=== PATIENT | female | born 1990 | race Caucasian/White ===

== ENCOUNTER 2020-08-03 22:27 | Emergency (ER) | payer MEDICAID ==
[~2020-08-03] VITALS: Ht 157.5 cm; Wt 129.3 kg
[2020-08-03 22:41] VITALS: BP 131/73
--- NOTE | 2020-08-03 23:50 | NUR ---
TO BED 4 , ACCOMPANIED BY MOM, WITH C/O ABDOMINAL PAIN. POINTS TO EPIGASTRIC AREA WHEN ASKED WHERE PAIN IS. AMBULATES TO BR FOR UA.
[2020-08-04] MEDS ORDERED: MORPHINE SULFATE 2 MG/ML SYR IVP ONE (00:15)
[2020-08-04] MEDS ORDERED: ONDANSETRON 4 MG/2 ML VIAL IVP ONE (00:15)
[2020-08-04] MEDS ORDERED: PANTOPRAZOLE 40 MG INJ VIAL IVP ONE (00:15)
[2020-08-04] MEDS ORDERED: NACL 0.9% 1,000 ML IV ONE (00:15)
--- NOTE | 2020-08-04 00:30 | NUR ---
POOR VENOUS ACCESS
[2020-08-04 01:20] LABS: BASOPHILS % (AUTO) 0.4 % (0.0-2.0); EOSINOPHILS # (AUTO) 0.4 K/uL (0-0.4); EOSINOPHILS % (AUTO) 3.2 % (0.0-4.0); HEMATOCRIT 35.2 % (36-48); HEMOGLOBIN 11.4 g/dL (12.0-16.0); LYMPHOCYTES # (AUTO) 3.8 K/uL (2.5-16.5); LYMPHOCYTES % (AUTO) 34.9 % (20.5-51.1); MEAN CORPUSCULAR HEMOGLOBIN 29 pg (27-31); MEAN CORPUSCULAR HGB CONC 32 g/dL (33-37); MONOCYTES # (AUTO) 0.9 K/uL (0.8-1.0); MONOCYTES % (AUTO) 8.3 % (1.7-9.3); NEUTROPHILS # (AUTO) 5.8 K/uL (1.8-7.7); NEUTROPHILS % (AUTO) 53.2 % (42.2-75.2); PLATELET COUNT (AUTO) 286 K/uL (140-450); RED BLOOD CELL COUNT(AUTO) 3.95 MIL/uL (4.20-5.40); RED CELL DISTRIBUTION WIDTH 14.6 % (11.6-13.7)
[2020-08-04 01:22] LABS: ALBUMIN 3.1 g/dL (3.4-5.0); ANION GAP 7.4 (8-16); CARBON DIOXIDE 33.2 mmol/L (21-32); CREATININE 0.5 mg/dL (0.6-1.3); POTASSIUM 3.6 mmol/L (3.5-5.1); TOTAL BILIRUBIN 0.2 mg/dL (0.0-1.0)
[2020-08-04] MEDS ORDERED: MORPHINE SULFATE 4 MG/ML SYR IVP ONE (01:40)
--- NOTE | 2020-08-04 01:45 | NUR ---
MOANING LOUDLY WITH INCREASED C/O PAIN. ADDITIONAL PAIN MED ORDERED
--- NOTE | 2020-08-04 01:50 | NUR ---
MOANING LOUDLY. ADDITIONAL PAIN MED ORDERED
--- NOTE | 2020-08-04 01:53 | NUR ---
EKG IN PROGRESS
--- NOTE | 2020-08-04 02:37 | NUR ---
TO CT VIA [facility]
--- NOTE | 2020-08-04 03:00 | NUR ---
RETURNED FROM CT
[2020-08-04 03:20] LABS: APPEARANCE,URINE SL CLOUDY (CLEAR); BILIRUBIN,URINE NEGATIVE (NEGATIVE); BLOOD, URINE NEGATIVE (NEGATIVE); COLOR,URINE YELLOW (YELLOW); LEUKOCYTE ESTERASE ,URINE NEGATIVE (NEGATIVE); NITRITE, URINE NEGATIVE (NEGATIVE); PH,URINE 5.5 (5.0-9.0); UGLUCOSE NEGATIVE (NEGATIVE)
[2020-08-04 04:48] VITALS: BP 131/73
--- NOTE | 2020-08-04 04:48 | NUR ---
Patient discharged with v/s stable. Written and verbal after care instructions given and explained. Patient alert, oriented and verbalized understanding of instructions. Ambulatory with steady gait. All questions addressed prior to discharge. ID band removed. Patient advised to follow up with PMD. Rx of PROTONIX given. Patient educated on indication of medication including possible reaction and side effects. Opportunity to ask questions provided and answered.
== END 2020-08-04 04:40 | disposition home or self-care (01) ==
LOC: MED 22:27
DX: R10.13 Epigastric pain (principal); Q87.11 Prader-Willi syndrome
CPT/HCPCS: 36415; 74176; 80053; 81003; 81025; 83690; 84484; 84703; 85025; 93005; 96361; 96374; 96375; 96376; 99284; C9113; J2270; J2405; J7030

== ENCOUNTER 2020-08-25 20:29 | Inpatient (IN) | payer MEDICAID, SELFPAY ==
[~2020-08-25] VITALS: Ht 149.9 cm; Wt 131.5 kg
[2020-08-25 20:53] VITALS: BP 140/85
--- NOTE | 2020-08-25 21:16 | NUR ---
ERMD EVALUATING PATIENT IN TENT.
--- NOTE | 2020-08-25 21:31 | NUR ---
Pt ambulated to ER bed 9 w/ steady gait. Sister at bedside w/ pt at this time.
--- NOTE | 2020-08-25 21:31 | NUR ---
Lab at bedside.
--- NOTE | 2020-08-25 21:31 | NUR ---
RT at bedside for ABG.
[2020-08-25 21:45] LABS: BASOPHILS % (AUTO) 0.4 % (0.0-2.0); EOSINOPHILS % (AUTO) 0.6 % (0.0-4.0); HEMATOCRIT 42.5 % (36-48); HEMOGLOBIN 13.8 g/dL (12.0-16.0); LYMPHOCYTES # (AUTO) 2.4 K/uL (2.5-16.5); LYMPHOCYTES % (AUTO) 36.9 % (20.5-51.1); MEAN CORPUSCULAR HEMOGLOBIN 29 pg (27-31); MEAN CORPUSCULAR HGB CONC 33 g/dL (33-37); MEAN CORPUSCULAR VOLUME 88.2 fL (80-94); MONOCYTES # (AUTO) 0.8 K/uL (0.8-1.0); MONOCYTES % (AUTO) 12.5 % (1.7-9.3); NEUTROPHILS # (AUTO) 3.2 K/uL (1.8-7.7); NEUTROPHILS % (AUTO) 49.6 % (42.2-75.2); PLATELET COUNT (AUTO) 213 K/uL (140-450); RED BLOOD CELL COUNT(AUTO) 4.82 MIL/uL (4.20-5.40); RED CELL DISTRIBUTION WIDTH 15.1 % (11.6-13.7); WHITE BLOOD COUNT (AUTO) 6.4 K/uL (4.8-10.8)
--- NOTE | 2020-08-25 21:45 | NUR ---
29 YO F BIB SELF, CAREGIVER AT BEDSIDE, WITH C/C OF COUGH AND CONGESTION X4 DAYS. CAREGIVER STATED O2 SAT AT 86% AND HAD A CHANGE IN LOC. PT IS CURRENTLY AT NORMAL LOC PER CAREGIVER. 02 SAT 95 RA AT THIS TIME. PT DENIES PAIN/ DISCOMFORT AT THIS TIME. -FEVER AND CHILLS. CAREGIVER STATED PT WAS TAKING TYLENOL AND ROBITUSSIN X4DAYS, NO IMPROVEMENT. 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
--- NOTE | 2020-08-25 21:48 | NUR ---
EKG PERFORMED AT BEDSIDE. EKG READS SINUS RHYTHM @ 83
--- NOTE | 2020-08-25 22:02 | NUR ---
SWABS COLLECTED AND WALKED TO LAB. PT GIVEN URINE CUP AND INSTRUCTED TO GIVE URINE SOON SHE CAN. RN AT BEDSIDE STARTING IV.
[2020-08-25 22:08] LABS: ALBUMIN 3.4 g/dL (3.4-5.0); CARBON DIOXIDE 29.1 mmol/L (21-32); CREATININE 0.9 mg/dL (0.6-1.3); POTASSIUM 4.1 mmol/L (3.5-5.1); TOTAL BILIRUBIN 0.2 mg/dL (0.0-1.0)
[2020-08-25 22:11] LABS: LACTATE DEHYDROGENASE 327 U/L (81-234)
[2020-08-25 22:12] LABS: C-REACTIVE PROTEIN QUANT 10.4 mg/dL (0.0-0.9)
[2020-08-25] MEDS ORDERED: NACL 0.9% 500 ML IV ONE (22:30)
[2020-08-25 22:32] LABS: PROTHROMBIN TIME 9.8 secs (10.8-13.4)
--- NOTE | 2020-08-25 22:37 | NUR ---
PT AMBULATING TO RR TO GIVE URINE WITH CAREGIVER'S HELP.
--- NOTE | 2020-08-25 22:54 | NUR ---
URINE COLLECTED AND TAKEN TO LAB.
[2020-08-25] MEDS ORDERED: DEXAMETHASONE 4 MG/ML VIAL IVP ONE (23:05)
[2020-08-25 23:28] LABS: APPEARANCE,URINE HAZY (CLEAR); BILIRUBIN,URINE NEGATIVE (NEGATIVE); BLOOD, URINE NEGATIVE (NEGATIVE); COLOR,URINE YELLOW (YELLOW); LEUKOCYTE ESTERASE ,URINE NEGATIVE (NEGATIVE); NITRITE, URINE NEGATIVE (NEGATIVE); UGLUCOSE NEGATIVE (NEGATIVE)
[2020-08-25 23:45] LABS: RBC,URINE 0-5 /HPF (0-5); WBC,URINE 0-5 /HPF (0-5)
--- NOTE | 2020-08-25 23:48 | NUR ---
PT IS IN STABLE CONDITION. PT IS AWAKE AND HAS CAREGIVER AT BEDSIDE. ALL PT'S NEEDS MET AT THIS TIME. SIDE RAILS X2, BED LOCKED IN LOWEST POSITION.
--- NOTE | 2020-08-26 01:25 | NUR ---
PATIENT RESTING QUIETLY IN BED. SISTER AT BEDSIDE. VSS. WILL CONTINUE TO MONITOR.
--- NOTE | 2020-08-26 03:08 | NUR ---
pt is sleeping with caregiver at bedside. equal rise and fall of chest wall. bed locked in lowest position, side rails x2.
--- NOTE | 2020-08-26 04:05 | NUR ---
pt is sleeping with caregiver at bedside. equal rise and fall of chest wall. bed locked in lowest position, side rails x2
--- NOTE | 2020-08-26 04:36 | NUR ---
notified dr. carroll to move 0900 antibiotic to now and add extra fluid bolus per septic protocol. waiting for response.
--- NOTE | 2020-08-26 04:41 | NUR ---
dr. carroll stated to give 0900 dose of abx now. orders carried out.
[2020-08-26] MEDS ORDERED: cefTRIAXone 1,000 MG VIAL ONE (04:42)
[2020-08-26] MEDS ORDERED: NACL 0.9% 2,000 ML IV ONE (04:55)
[2020-08-26] MEDS ORDERED: AZITHROMYCIN 250 MG TAB ONE (05:52)
--- NOTE | 2020-08-26 06:50 | NUR ---
pt is sleeping with caregiver at bedside. equal rise and fall of chest wall. bed locked in lowest position, side rails x2
--- NOTE | 2020-08-26 07:21 | NUR ---
REPORT RECEIVED FROM BETSY KAPOOR
--- NOTE | 2020-08-26 07:21 | NUR ---
REPORT GIVEN TO BETSY COFFMAN. TRANSFER OF CARE AT THIS TIME.
--- NOTE | 2020-08-26 07:28 | NUR ---
PT ASSISTED TO THE RESTROOM VIA WHEELCHAIR BY CAREGIVER WITHOUT INCIDENT.
[2020-08-26] MEDS ORDERED: AZITHROMYCIN 250 MG TAB PO SCH (09:00)
--- NOTE | 2020-08-26 09:06 | NUR ---
BREAKFAST TRAY PROVIDED TO PT
--- NOTE | 2020-08-26 09:36 | NUR ---
PATIENT HAS BEEN SCREENED AND CATEGORIZED MODERATE NUTRITION RISK. PATIENT WILL BE SEEN WITHIN 3-5 DAYS OF ADMISSION. 08/28/20-08/30/[address]
--- NOTE | 2020-08-26 10:00 | NUR ---
PT ATE 100% OF BREAKFAST.
[2020-08-26] MEDS ORDERED: MAG SULF 2000 MG/WATER PREMIX 50 ML IV PRN (10:10)
[2020-08-26] MEDS ORDERED: ZOLPIDEM 5 MG TAB PO PRN (10:10)
[2020-08-26] MEDS ORDERED: MORPHINE SULFATE 2 MG/ML SYR IVP PRN (10:10)
[2020-08-26] MEDS ORDERED: DOCUSATE SODIUM 100 MG GELCAP PO PRN (10:10)
[2020-08-26] MEDS ORDERED: ALBUTEROL HFA MDI 90 MCG/ACTUATION 8 GM INH PRN (10:10)
[2020-08-26] MEDS ORDERED: HYDROcodone/APAP 5/325 MG 1 TAB TAB PO PRN (10:10)
[2020-08-26] MEDS ORDERED: POTASSIUM CHLORIDE 10 MEQ TABER PO PRN (10:10)
[2020-08-26] MEDS ORDERED: ACETAMINOPHEN 325 MG TAB PO PRN (10:10)
[2020-08-26] MEDS ORDERED: LORazepam 2 MG/ML VIAL IM/IVP PRN (10:10)
[2020-08-26] MEDS: NACL 0.9% 1,000 ML IV SCH ×2 (10:10→15:15)
[2020-08-26] MEDS ORDERED: ONDANSETRON 4 MG/2 ML VIAL IM/IVP PRN (10:10)
--- NOTE | 2020-08-26 12:25 | NUR ---
PT ASLEEP IN BED WITH CAREGIVER AT BEDSIDE. EQUAL CHEST RISE AND FALL. BED LOCKED AND IN LOWEST POSITION. SIDE RAILS X2. ORTHOPAEDIC SURGEON IN PLACE.
[2020-08-26 13:10] LABS: BASOPHILS % (AUTO) 0.3 % (0.0-2.0); HEMATOCRIT 38.5 % (36-48); HEMOGLOBIN 12.5 g/dL (12.0-16.0); LYMPHOCYTES % (AUTO) 29.4 % (20.5-51.1); MEAN CORPUSCULAR HEMOGLOBIN 29 pg (27-31); MEAN CORPUSCULAR HGB CONC 32 g/dL (33-37); MEAN CORPUSCULAR VOLUME 88.1 fL (80-94); MONOCYTES # (AUTO) 0.4 K/uL (0.8-1.0); MONOCYTES % (AUTO) 11.2 % (1.7-9.3); NEUTROPHILS # (AUTO) 1.9 K/uL (1.8-7.7); NEUTROPHILS % (AUTO) 59.1 % (42.2-75.2); PLATELET COUNT (AUTO) 199 K/uL (140-450); RED BLOOD CELL COUNT(AUTO) 4.37 MIL/uL (4.20-5.40); RED CELL DISTRIBUTION WIDTH 14.9 % (11.6-13.7); WHITE BLOOD COUNT (AUTO) 3.3 K/uL (4.8-10.8)
[2020-08-26 13:40] LABS: ALBUMIN 2.6 g/dL (3.4-5.0); ANION GAP 13.8 (8-16); CREATININE 0.6 mg/dL (0.6-1.3); MAGNESIUM 1.8 mg/dL (1.8-2.4); PHOSPHORUS 2.5 mg/dL (2.5-4.9); POTASSIUM 3.8 mmol/L (3.5-5.1); THYROID STIMULATING HORMONE 0.42 uIU/mL (0.34-3.74); TOTAL BILIRUBIN 0.2 mg/dL (0.0-1.0)
--- NOTE | 2020-08-26 13:55 | NUR ---
LUNCH TRAY PROVIDED TO PT
--- NOTE | 2020-08-26 14:50 | NUR ---
PT RESTING IN BED. EQUAL CHEST RISE AND FALL. BED LOCKED IN LOWEST POSITION, SIDE RAILS X2, CALL LIGHT IN REACH
--- NOTE | 2020-08-26 17:56 | NUR ---
PT SITTING IN HIGH FOWLERS POSITION WATCHING TV. SISTER IN ROOM STATES SHE IS OLDER SISTER AND DURABLE MEDICAL EQUIPMENT TECHNICIAN OF PT. DAM TENDER IN PLACE WITH VSS. EQUAL CHEST RISE AND FALL. ALL PT NEEDS MET. BED LOCKED IN LOWEST POSITION, SIDE RAILS X2, CALL LIGHT IN REACH
--- NOTE | 2020-08-26 19:05 | NUR ---
SPOKE WITH ASHLY, SISTER/CAREGIVER TO PT. CAREGIVER REQUESTED INFORMATION ABOUT CHEST XRAY RESULTS, AND WHETHER IF PT WILL BE OBSERVED IN ER OR ANOTHER FLOOR. PT REPOSITIONED ONTO BED, RIB MATCHER AND FITTER IN PLACE. VSS. EQUAL CHEST RISE AND FALL ALL PT NEEDS MET. BED LOCKED IN LOWEST POSITION, SIDE RAILS X2, CALL LIGHT IN REACH
--- NOTE | 2020-08-26 19:18 | NUR ---
REPORT AND TRANSFER OF CARE GIVEN TO BETSY LAW
--- NOTE | 2020-08-26 19:22 | NUR ---
RECIVED REPORT FROM MEGHNA MEYER, CONTINUATION OF CARE.
[2020-08-26] MEDS ORDERED: ENOXAPARIN 30 MG/0.3 ML SYR SUBQ SCH (21:00)
[2020-08-26] MEDS ORDERED: ENOXAPARIN 100 MG/ML SYR SUBQ SCH (21:00)
--- NOTE | 2020-08-26 22:35 | NUR ---
Patient will be admitted to care of DR. TYLER. Admited to TELE. Will go to room 119A. Belongings list completed. Report to RIGOBERTO MEYER.
--- NOTE | 2020-08-26 23:40 | NUR ---
Patient arrived via [place] from ER,ambulated from bed to bed, without issue. No s/s of dyspnea, distress, or discomfort noted. VS stable, O2 95% 2L NC. Patient cooperative, apprehensive, has some cognitive delay, but responds and communicates in Mauritanian. Family phone numbers with nursing staff, sisters, Mauritanian speaking involved with care, Mom is Israeli speaking only.
[2020-08-27] VITALS: BP 137/64
--- NOTE | 2020-08-27 | NUR ---
Patient's Ambulatory, A/O x 3, delayed responses, Cardiac rhythm NSR, HR 80's, Sats high 90's 2L NC, LS Clear, GI Bowel Sounds All Quad Active, Pedal, radial pulses +2, Continent, Denies pain.
[2020-08-27 04:00] VITALS: BP 113/51
--- NOTE | 2020-08-27 06:40 | NUR ---
Patient Bradycardia in 40's. Asyymptomatic. Notified Dr. Arnold received orders for EKG, Consult, all orders carried out, Patient asymptomatic. Resting bed, comfortably sleeping, no s/s of distress, discomfort. Awaiting EKG Stat.
[2020-08-27 06:43] VITALS: BP 111/63
--- NOTE | 2020-08-27 08:30 | NUR ---
NURSE REPORT Obtained report from night nurse Ely, who didn't do admission of patient, even even patient came to unit about MN. This nurse assume care of patient until 1930. VSS. Afeb. No c/o pain or discomfort. COVID-19 +. Patient coming out of room and not able to direct her back to room. This nurse called her sister Yin, and able to direct her back into her room.
[2020-08-27] MEDS: VITAMIN D 400 IU TAB PO SCH (08:39)
[2020-08-27] MEDS: ASCORBIC ACID 500 MG TAB PO SCH (08:45)
[2020-08-27 09:34] LABS: BASOPHILS % (AUTO) 0.3 % (0.0-2.0); HEMATOCRIT 35.2 % (36-48); HEMOGLOBIN 11.6 g/dL (12.0-16.0); LYMPHOCYTES # (AUTO) 1.9 K/uL (2.5-16.5); MEAN CORPUSCULAR HEMOGLOBIN 29 pg (27-31); MEAN CORPUSCULAR HGB CONC 33 g/dL (33-37); MEAN CORPUSCULAR VOLUME 87.7 fL (80-94); MONOCYTES # (AUTO) 0.8 K/uL (0.8-1.0); MONOCYTES % (AUTO) 12.4 % (1.7-9.3); NEUTROPHILS # (AUTO) 3.7 K/uL (1.8-7.7); NEUTROPHILS % (AUTO) 58.3 % (42.2-75.2); PLATELET COUNT (AUTO) 222 K/uL (140-450); RED BLOOD CELL COUNT(AUTO) 4.02 MIL/uL (4.20-5.40); RED CELL DISTRIBUTION WIDTH 14.8 % (11.6-13.7); WHITE BLOOD COUNT (AUTO) 6.4 K/uL (4.8-10.8)
[2020-08-27 09:49] LABS: ALBUMIN 2.6 g/dL (3.4-5.0); ANION GAP 12.9 (8-16); CHOL/HDL RATIO 4.3 (1-4.5); CREATININE 0.4 mg/dL (0.6-1.3); MAGNESIUM 2.2 mg/dL (1.8-2.4); PHOSPHORUS 3.3 mg/dL (2.5-4.9); POTASSIUM 3.9 mmol/L (3.5-5.1); TOTAL BILIRUBIN 0.2 mg/dL (0.0-1.0)
--- NOTE | 2020-08-27 11:45 | NUR ---
SOCIAL WORK NOTE: Patient's Orientation Unable To Assess Information Provided By FREEMAN ALFREDO - MOTHER Comments SW WAS UNABLE TO MEET PATIENT AT BEDSIDE TO COMPLETE ASSESSMENT. SW COMPLETED ASSESSMENT WITH PATIENT'S MOTHER. Newspaper Correspondent, Realtionship and Phone Number FREEMAN OSBORNE [phone] Healthcare Power of Optical Engineer No Does Patient Have a POLST No Identifying Problems No Social Work Triggers Is A Social Work Consult Needed No Mandate Report Filed No Explanation Of Identifying Problems PATIENT IS A 29-YEAR-OLD FEMALE ADMITTED FOR COVID/HYPOXIA. PATIENT HAS PMHX OF PRADER WILLI SYNDROME AND SUPER MORBID OBESITY. Admitted From Home Pre-Admission Level Of Functioning Status Independent/Ambulatory Prior Resources/Services Used In Last 12 Months No Prior Resources Used Prior DME No Prior DME Used Dialysis Comments N/A Living Situation Lives With Family House Patient Had Caregiver No Home Support No Caregiver Issues Financial Issues No Known Financial Issue Referral To The Financial Counselor Needed No Factors/Needs No D/C Needs Identified Pt/Rep Participated In Discharge Plan Yes Patient/Family Agress With Discharge Plan Yes Discharge Plan Comments TENTATIVE DISCHARGE PLAN IS FOR PATIENT TO RETURN HOME. DC Plan Status Initiated
[2020-08-27 12:00] VITALS: BP 125/65
[2020-08-27 17:49] VITALS: BP 146/78
--- NOTE | 2020-08-27 19:30 | NUR ---
ENDORSEMENT AND NURSE REPORT Report given to night nurse Amanda. This nurse able to do admission for patient with the help of her cellphone and spoke with patient sister Yin Killian and mother Zakia aMlave . 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 MRSA swab was obtained this am and taken to lab.
[2020-08-27 20:00] VITALS: BP 107/56
[2020-08-28] VITALS (7 sets, daily range): BP systolic 106–143; BP diastolic 60–74
[2020-08-28] MEDS: NACL 0.9% 1,000 ML IV SCH ×2 (02:06→12:10)
--- NOTE | 2020-08-28 02:28 | NUR ---
REFUSED IV INSERTION WENT TO PT ROOM TO GIVE IVF BUT PT DOESN'T HAVE IV PERIPHERAL LINE, SPOKE WITH PT ENCOURAGE & EXPLAINED TO HER THE BENEFIT OF HAVING IV PERIPHERAL BUT STILL REFUSING & PULLING HER ARMS BACK & CRYING. WILL CALL FAMILY IN THE MORNING TO TRY TO TALK TO THE PT FOR IV INSERTION.
[2020-08-28 07:47] LABS: BASOPHILS % (AUTO) 0.3 % (0.0-2.0); EOSINOPHILS % (AUTO) 0.1 % (0.0-4.0); HEMATOCRIT 36.5 % (36-48); HEMOGLOBIN 11.9 g/dL (12.0-16.0); LYMPHOCYTES # (AUTO) 1.8 K/uL (2.5-16.5); LYMPHOCYTES % (AUTO) 33.7 % (20.5-51.1); MEAN CORPUSCULAR HEMOGLOBIN 28 pg (27-31); MEAN CORPUSCULAR HGB CONC 33 g/dL (33-37); MEAN CORPUSCULAR VOLUME 87.4 fL (80-94); MONOCYTES # (AUTO) 0.9 K/uL (0.8-1.0); MONOCYTES % (AUTO) 17.2 % (1.7-9.3); NEUTROPHILS # (AUTO) 2.6 K/uL (1.8-7.7); NEUTROPHILS % (AUTO) 48.7 % (42.2-75.2); PLATELET COUNT (AUTO) 268 K/uL (140-450); RED BLOOD CELL COUNT(AUTO) 4.18 MIL/uL (4.20-5.40); RED CELL DISTRIBUTION WIDTH 14.6 % (11.6-13.7); WHITE BLOOD COUNT (AUTO) 5.4 K/uL (4.8-10.8)
[2020-08-28 07:59] LABS: ALBUMIN 2.7 g/dL (3.4-5.0); ANION GAP 14.8 (8-16); CARBON DIOXIDE 27.6 mmol/L (21-32); CREATININE 0.5 mg/dL (0.6-1.3); MAGNESIUM 1.6 mg/dL (1.8-2.4); PHOSPHORUS 4.1 mg/dL (2.5-4.9); POTASSIUM 4.4 mmol/L (3.5-5.1); TOTAL BILIRUBIN 0.2 mg/dL (0.0-1.0)
--- NOTE | 2020-08-28 08:00 | NUR ---
NURSE REPORT Received report from night nurse Amanda, and this nurse assumed care of patient until 1930. VSS. Afeb. No c/o pain or discomfort.
[2020-08-28] MEDS: ASCORBIC ACID 500 MG TAB PO SCH (11:07)
[2020-08-28] MEDS: VITAMIN D 400 IU TAB PO SCH (11:07)
[2020-08-28] MEDS ORDERED: VITD400 PO (12:25)
[2020-08-28] MEDS ORDERED: VITC500 PO (12:25)
[2020-08-28] MEDS ORDERED: DEXA6TAB1 PO (12:25)
[2020-08-28] MEDS ORDERED: ZINC50TA58 PO (12:26)
[2020-08-28] MEDS ORDERED: APIX2.5 PO (14:50)
[2020-08-28 15:07] LABS: T4 (THYROXINE) 10.3 ug/dL (4.5-12.0)
--- NOTE | 2020-08-28 18:00 | NUR ---
NURSING CARE Supposed to be discharge, but MD came late, and o2 decreased from 6 l/min NC to 4 l/min NC. Home o2 has been delivered. Discharge cancelled until am. Daughter will pick her up tomorrow.
--- NOTE | 2020-08-28 19:30 | NUR ---
NURSE REPORT AND ENDORSEMENT Report given to night nurse Dave who assumed care of patient. Discharge was delayed, since o2 wasn't ordered for patient at hime. This nurse had asked about O2 to take home, and nursing butter production supervisor said to check if patient needed it. O2 sat 85%. Sisters was called by this nurse thru FaceTime because patient needed sisters to help her to stay overnight.
--- NOTE | 2020-08-28 19:45 | NUR ---
NURSE REPORT AND ENDORSEMENT Report given to night nurse Dave to assume care of patient. Patient needed home O2 ordered. O2 sat 85% on RA.
--- NOTE | 2020-08-28 19:46 | NUR ---
RECEIVED ENDORSEMENT FROM AM SHIFT RN, AWAKE, ALERT, ABLE TO MAKE NEEDS KNOWN, NO SOB, NO IV SITE DUE TO PT READY TO GO HOME, BUT PENDING D/C BECAUSE THERE'S NO HOME O2, SAFETY MEASURES IN PLACE, PLAN OF CARE DISCUSSED, CALL LIGHT WITHIN REACH.
--- NOTE | 2020-08-28 20:43 | NUR ---
Pt awake, due meds given as ordered, tolerated well, no distress, call light within reach.
[2020-08-29] VITALS: BP 145/75
[2020-08-29 04:00] VITALS: BP 144/70
[2020-08-29] MEDS: NACL 0.9% 1,000 ML IV SCH (04:50)
[2020-08-29 07:43] LABS: BASOPHILS % (AUTO) 0.3 % (0.0-2.0); HEMATOCRIT 39.1 % (36-48); HEMOGLOBIN 12.8 g/dL (12.0-16.0); LYMPHOCYTES # (AUTO) 1.6 K/uL (2.5-16.5); LYMPHOCYTES % (AUTO) 30.5 % (20.5-51.1); MEAN CORPUSCULAR HEMOGLOBIN 29 pg (27-31); MEAN CORPUSCULAR HGB CONC 33 g/dL (33-37); MEAN CORPUSCULAR VOLUME 87.5 fL (80-94); MONOCYTES # (AUTO) 0.6 K/uL (0.8-1.0); MONOCYTES % (AUTO) 10.5 % (1.7-9.3); NEUTROPHILS # (AUTO) 3.1 K/uL (1.8-7.7); NEUTROPHILS % (AUTO) 58.7 % (42.2-75.2); PLATELET COUNT (AUTO) 317 K/uL (140-450); RED BLOOD CELL COUNT(AUTO) 4.47 MIL/uL (4.20-5.40); RED CELL DISTRIBUTION WIDTH 14.6 % (11.6-13.7); WHITE BLOOD COUNT (AUTO) 5.3 K/uL (4.8-10.8)
[2020-08-29 08:00] VITALS: BP 119/68
--- NOTE | 2020-08-29 08:00 | NUR ---
NURSE REPORT Report obtained from night nurse Yanelis and this nurse assume care until patient is discharged at 1999. Received patient awake and alert. Ambulatory.
--- NOTE | 2020-08-29 08:00 | NUR ---
PT STABLE, NO ACUTE CHANGES THE WHOLE SHIFT, ENDORSED TO AM SHIFT RN.
[2020-08-29 08:22] LABS: CARBON DIOXIDE 29.8 mmol/L (21-32); CREATININE 0.5 mg/dL (0.6-1.3); MAGNESIUM 2.1 mg/dL (1.8-2.4); PHOSPHORUS 4.6 mg/dL (2.5-4.9); POTASSIUM 3.8 mmol/L (3.5-5.1); TOTAL BILIRUBIN 0.2 mg/dL (0.0-1.0)
[2020-08-29] MEDS: VITAMIN D 400 IU TAB PO SCH (08:57)
[2020-08-29] MEDS: ASCORBIC ACID 500 MG TAB PO SCH (08:57)
[2020-08-29 12:00] VITALS: BP 131/73
--- NOTE | 2020-08-29 12:12 | NUR ---
O2 SAT CHECKED WITH ROOM AIR PATIENT SATING 87% AND PLACED PATIENT ON O2 4L O2 SAT 94% .
--- NOTE | 2020-08-29 12:20 | NUR ---
DC PLANNING: PATIENT HAS HOME O2 ORDER FAXED TO [facility] AND CONTRACTED PEGGY GALVEZ CM TO FOLLOW Addendum: 08/29/20 at 1309 by Jenni Saini CM DC MANAGER PURCHASING: FOLLOWED UP WITH [facility] AND SPOKE TO BRIDGER, SHE STATED THAT THEY NEED AUTH FROM [facility]. CALLED [facility] AND SPOKE TO CLAYTON MORALES [phone] SHE IS REQUESTING [facility] TO FAX OVER CODES FOR THE EQUIPMENT. [facility] SUNIL PROVIDED HER WITH THE FAX NUMBER FOR [facility] [phone]. WILL FOLLOW UP. Addendum: 08/29/20 at 1509 by Jenni Saini CM DC MANAGER PURCHASING: RECEIVED A CALL BACK FROM CARMEN AT [facility] SHE IS GOING TO CONTACT CLAYTON MORALES FROM [facility] TO GET AUTH. FOLLOWED UP WITH HER SHE WAS ON THE PHONE WITH [facility] WHEN I CALLED ASTER SANCHEZ. RECEIVED A CALL FROM ANDREW AT [facility] STATING SHE PROVIDED [facility] AUTH. HOME 02 WILL BE DELIVERED TO BEDSIDE. Addendum: 08/29/20 at 1655 by Jenni Saini CM KALEIGH HAINES: FOLLOWED UP WITH MAHNAZ, THE HOME O2 HAS BEEN DISPATCHED THE PAVING SUPERVISOR SHOULD BE HERE TO DELIVER SHORTLY.
[2020-08-29 16:00] VITALS: BP 120/71
[2020-08-29 18:58] VITALS: BP 120/71
--- NOTE | 2020-08-29 20:00 | NUR ---
DISCHARGE NOTES Patient able to be discharge home with sister Keyanna taking her home. Patient able to dress herself, but she had wet her clothes and change clothes. Had dinner prior to discharge. Family had O2 for patient to use at home. Yesterday her O2 was 83%, but today she ambulated more and o2 mid 90's. D/C via wheelchair, with MEAT TEAM LEAD and nurse. No c/o pain or SOB.
== END 2020-08-29 20:40 | disposition home or self-care (01) | DRG 720 ==
LOC: MED 20:29 → MTU 23:52 → MED 08-26 00:02 → MTU 08-26 16:42
DX: A41.9 Sepsis, unspecified organism (principal); U07.1 COVID-19; Q87.11 Prader-Willi syndrome; J96.01 Acute respiratory failure with hypoxia; E86.0 Dehydration; E87.1 Hypo-osmolality and hyponatremia; J12.82 Pneumonia due to coronavirus disease 2019; Z11.52 Encounter for screening for COVID-19
CPT/HCPCS: 36415; 36600; 71045; 80053; 81001; 82150; 82550; 82728; 82803; 83036; 83605; 83615; 83690; 83735; 83880; 84100; 84134; 84436; 84443; 84484; 85025; 85379; 85384; 85610; 85651; 85730; 86140; 86900; 86901; 87040; 87081; 87086; 87804; 93005; 96361; 96365; 99291; J0696; J1100; J1644; J7030; J7060; U0003

== ENCOUNTER 2021-01-30 21:14 | Emergency (ER) | payer MEDICAID, SELFPAY ==
[~2021-01-30] VITALS: Ht 162.6 cm; Wt 128.4 kg
[~2021-01-30 21:14] MED LIST: APIX2.5 PO; DEXA6TAB1 PO; VITC500 PO; VITD400 PO; ZINC50TA58 PO
[2021-01-30 21:29] VITALS: BP 106/60
--- NOTE | 2021-01-30 22:18 | NUR ---
PATIENT LEFT WITHOUT BEING SEEN BY DR. THOMAS. NO FURTHER CARE PROVIDED FOR PATIENT.
== END 2021-01-30 22:18 | disposition left against medical advice (07) ==
LOC: MED 21:14
DX: T14.8XXA Other injury of unspecified body region, initial encounter (principal); Z53.21 Procedure and treatment not carried out due to patient leaving prior to being seen by health care provider; W57.XXXA Bitten or stung by nonvenomous insect and other nonvenomous arthropods, initial encounter; Y93.89 Activity, other specified; Y92.89 Other specified places as the place of occurrence of the external cause; Y99.8 Other external cause status

== ENCOUNTER 2024-05-06 10:08 | Emergency (ER) | payer MEDICAID, OTHER ==
[~2024-05-06] VITALS: Ht 121.9 cm; Wt 136.1 kg
[2024-05-06 10:23] VITALS: BP 142/86; PULSE 60; RESP 20; TEMP 98.1; O2SAT 100
[2024-05-06] MEDS: KETOROLAC 60 MG/2 ML VIAL IM ONE (10:58)
[2024-05-06] MEDS ORDERED: ACET-8905 PO (13:12)
[2024-05-06] MEDS ORDERED: IBUP-2213 PO (13:12)
[2024-05-06] MEDS: HYDROcodone/APAP 7.5/325 MG 1 TAB PO ONE (13:42)
[2024-05-06 14:33] VITALS: BP 150/100; PULSE 85; RESP 20; TEMP 98; O2SAT 97
[2024-05-06] MEDS ORDERED: HYDR-5071 PO (17:22)
== END 2024-05-06 14:33 | disposition home or self-care (01) ==
LOC: MED 10:08
DX: S82.302A Unspecified fracture of lower end of left tibia, initial encounter for closed fracture (principal); Z79.899 Other long term (current) drug therapy; Z79.01 Long term (current) use of anticoagulants; W01.0XXA Fall on same level from slipping, tripping and stumbling without subsequent striking against object, initial encounter; Y92.89 Other specified places as the place of occurrence of the external cause; Y93.89 Activity, other specified; Y99.8 Other external cause status
CPT/HCPCS: 29515; 73562; 73610; 96372; 99284; J1885